=== PATIENT | female | born 1940 | race Caucasian/White ===

== ENCOUNTER 2025-04-23 10:23 | Emergency (ER) | payer MEDICARE ==
[~2025-04-23] VITALS: Ht 157.5 cm; Wt 67.5 kg
[~2025-04-23 10:23] MED LIST: CEPH250T PO; LEVO50TA8 PO; LISI10TA27 PO; MELO-100 PO; MEMA10TA22 PO; PROP120C2 PO; ROSU5TAB51 PO
[2025-04-23 10:27] VITALS: BP 169/66; PULSE 68; RESP 16; TEMP 97.9; O2SAT 97
--- NOTE | 2025-04-23 11:27 | Physician Documentation ---
History of Present Illness ~ Chief Complaint: Leg Pain Stated Complaint: LEG WOUND Time Seen by MD: 10:42 HPI 85-year-old female who presents to the emergency department for evaluation of right upper lateral lower leg injury secondary mechanical fall. Injury happened 4-5 days ago and subsequently has a an abrasion with early signs of infection. Tetanus witin 5 years: Yes Medication Reconciliation Allergies: Coded Allergies: No Known Allergies (Unverified , 04/23/25) Scheduled Cephalexin*Monohydrate* (Keflex*), 1 CAP PO Q6H Cephalexin*Monohydrate* (Keflex*), 1 CAP PO TID Levothyroxine Sodium (Levothyroxine Sodium), 1 TAB PO DAILY, (Reported) Lisinopril (Lisinopril), 1 TAB PO DAILY, (Reported) Meloxicam* (Meloxicam*), 1 TAB PO DAILY, (Reported) Memantine HCl (Memantine HCl), 1 TAB PO BID, (Reported) Propranolol Hcl (Propranolol Hcl), 1 CAP PO HS, (Reported) Rosuvastatin Calcium (Rosuvastatin Calcium), 1 TAB PO QAM, (Reported) Past Medical History Past Medical History: Dementia, Hypertension, Hypothyroidism Past Surgical History: appendectomy, cholecystectomy, hysterectomy Alcohol Use: Occasionally Drug Use: none Lives with: Spouse Review of Systems All Other Systems at this time: Reviewed and Negative Physical Exam Vital Signs: RN Vital Signs have been reviewed: Yes, Temperature: 97.9, Source: Temporal, Heart Rate: 68, Respiratory Rate: 16, BP: 169/66, Pulse Oximetry: 97, Weight: 67.500 Oxygen Flow Rate: 0 General Appearance: alert, WD/WN, mild distress Head: normal inspection EENT: PERRL/EOMI Neck: full range of motion Respiratory: no respiratory distress Chest: no accessory muscle use Legs: soft tissue tenderness Legs 1 cm upper lateral tib wound Ankles: normal inspection Feet: normal inspection Digit: normal inspection Nail: normal inspection Distal Function: no motor deficit Skin: other (1 cm right upper lateral lower leg wound, no subcutaneous air, no lymphangitis, mild surrounding erythema) Lymphatic: normal inspection Neurologic: oriented x4 Psychiatric: normal mood/affect Progress Results/Orders Results/Orders Orders - JAKUB MCDOWELL PAC Tib/Fib (04/23/25 ) Completed Orders - JAKUB MCDOWELL PAC Tib/Fib (04/23/25 ) Vital Signs 04/23/25 10:27 Temp 97.9 Pulse 68 Resp 16 B/P (MAP) 169/66 Pulse Ox 97 O2 Flow Rate 0 Medical Decision Making Additional information obtaine: N/A Findings Examination history warrants x-ray imaging to evaluate for foreign body, deep soft tissue injury and/or gas or bony pathology. X-rays reassuring for no foreign body, gas or bony pathology. Patient to be managed in outpatient with antibiotic and primary care follow up. Discharge safe stable condition. General Diff Dx:Considerations: Include: Abrasion, Contusion, Fracture, Ulcer Knee Diff Dx:Considerations: Include: Other Ankle Diff Dx:Considerations: Include: Other Foot Diff Dx:Considerations: Include: Other (Noncontributory) Toe Diff Dx:Considerations: Include: Other (Noncontributory) Departure Disposition: HOME / SELF CARE / HOMELESS Impression: Primary Impression: Wound of lower extremity Qualified Codes: S81.801A - Unspecified open wound, right lower leg, initial encounter Condition: Stable Discharge Instructions: Contusion, [id number], Wound Care, Adult Additional Instructions: Please begin Antibiotics as directed. Your X-rays are reassuring for no fracture. Please make follow up with the primary care doctor in 7-10 days. Thank you for visiting [facility]. Referrals: NO PRIMARY CARE PROVIDER (PCP) Prescriptions Cephalexin*Monohydrate* (Keflex*) 500 Mg Capsule 1 CAP PO TID, #21 CAP Prov: JAKUB MCDOWELL PAC 04/23/25 Education Educated: Patient Educated regarding: diagnosis, treatment, prognosis, need for follow up Signature Scribe Signature: . Attestation: . JAKUB MCDOWELL PAC Apr 23, 2025 11:27
[2025-04-23] MEDS ORDERED: CEPH-585 PO (11:50)
--- NOTE | 2025-04-23 11:57 | RADIOLOGY REPORT ---
X-ray right tibia and fibula Technique: AP and lateral views REASON FOR EXAM: Fall with infection INDICATION: Fall with infection FINDINGS: No fractures or dislocations. No erosions or periosteal reaction. Articular surfaces are smooth. IMPRESSION: 1. No bony pathology. Soft tissue swelling is present
== END 2025-04-23 12:06 | disposition home or self-care (01) ==
LOC: ER 10:24
DX: S81.801A Unspecified open wound, right lower leg, initial encounter (principal); E03.9 Hypothyroidism, unspecified; F03.90 Unspecified dementia, unspecified severity, without behavioral disturbance, psychotic disturbance, mood disturbance, and anxiety; I10 Essential (primary) hypertension; Z90.49 Acquired absence of other specified parts of digestive tract; Z90.710 Acquired absence of both cervix and uterus; W19.XXXA Unspecified fall, initial encounter; Y93.89 Activity, other specified; Y92.89 Other specified places as the place of occurrence of the external cause; Y99.8 Other external cause status
CPT/HCPCS: 73590; 99283

== ENCOUNTER 2025-04-29 10:31 | Emergency (ER) | payer MEDICARE ==
[~2025-04-29] VITALS: Ht 160 cm; Wt 75.0 kg
[~2025-04-29 10:31] MED LIST changes: +CEPH-585 PO
[2025-04-29 10:48] VITALS: TEMP 98.2
[2025-04-29 12:04] VITALS: RESP 16; O2SAT 94
--- NOTE | 2025-04-29 12:20 | Physician Documentation ---
History of Present Illness ~ Chief Complaint: Wound Stated Complaint: RT LEG PAIN Time Seen by MD: 11:20 Primary Medical Doctor: Nat Source: patient (1), family HPI Patient was brought in by her for recheck of a right lateral lower extremity wound. He tells me that two weeks ago she fell and hit her leg, after which it became swollen and she had a lesion or cut in the area of the blow. They did not seek medical care for 4-5 days and then came in for evaluation. At that time she was also having a bit of redness around the area that was going up her leg with swelling. She was seen here a week ago and sent home on Keflex, which she continues to take. X-rays were negative at that time. Patient was complaining of increased pain today and her brought her in for re-evaluation. There has been no fever, no vomiting, some occasional drainage. Tetanus within 5 years?: Yes Medication Reconciliation Allergies: Coded Allergies: No Known Allergies (Unverified , 04/23/25) Scheduled Cephalexin*Monohydrate* (Keflex*), 1 CAP PO Q6H Cephalexin*Monohydrate* (Keflex*), 1 CAP PO TID Levothyroxine Sodium (Levothyroxine Sodium), 1 TAB PO DAILY, (Reported) Lisinopril (Lisinopril), 1 TAB PO DAILY, (Reported) Meloxicam* (Meloxicam*), 1 TAB PO DAILY, (Reported) Memantine HCl (Memantine HCl), 1 TAB PO BID, (Reported) Propranolol Hcl (Propranolol Hcl), 1 CAP PO HS, (Reported) Rosuvastatin Calcium (Rosuvastatin Calcium), 1 TAB PO QAM, (Reported) Past Medical History Past Medical History: Dementia, High Cholesterol, Hypertension, Hypothyroidism Past Surgical History: appendectomy, cholecystectomy, hysterectomy Smoking Status: Never smoker Alcohol Use: None Drug Use: none Lives with: Spouse Review of Systems Unable to obtain complete ROS: dementia Physical Exam Vital Signs: Temperature: 98.2, Source: Oral, Heart Rate: 67, Respiratory Rate: 16, BP: 121/65, Pulse Oximetry: 94, Weight: 75.000 Oxygen Flow Rate: 0 Physical Exam General: Pt is awake, alert, oriented at her baseline in no acute distress and well appearing. Head: Normocephalic and atraumatic. Eyes: Conjunctiva normal. ENT: Mucous membranes moist. Neck: Supple. Chest: Clear to auscultation bilaterally, without rales, rhonchi, or wheezes. There is no accessory muscle use or retractions. Cardiac: Regular rate and rhythm without murmurs, gallops or rubs. Palpation of the chest wall is normal. Abd: Soft, nondistended, nontender, with normoactive bowel sounds. No guarding or rebound. Extremities: Mild edema to the right lower extremity, with a 1 cm wound over the lateral calf. This is somewhat deep, and full of slough, with surrounding eschar. There is faint erythema in the periwound area but no extension in the cephalad direction, no acute worsening cellulitis present. 1+ DP pulse with 2nd capillary refill to the toes. Skin: [place], warm and dry with no significant rash appreciated. Neuro: Cranial nerves II-XII grossly intact. The gait is normal. Progress Results/Orders Results/Orders Orders - JOHN MANN MD Vl Venous (04/29/25 12:19) Vital Signs 04/29/25 04/29/25 10:48 12:04 Temp 98.2 Pulse 67 67 Resp 16 16 B/P (MAP) 118/97 121/65 (83) Pulse Ox 97 94 O2 Flow Rate 0 0 Medical Decision Making Additional information obtaine: family Findings Differential Dx:Considerations: Unlikely: Abscess, Cellulitis, Dressing change, Healing wound, Other Additional Comment Patient presenting with now subacute wound contaminated with significant slough and surrounding eschar. Examination of the wound shows that the patient is in need of debridement, as she appears to be stuck in the inflammatory phase and having difficulty healing this wound. Vascular ultrasound was done to rule out deep vein thrombosis from the blow that she had two weeks ago; no DVT present. Patient to continue and finish her antibiotic prescription, and to elevate and use compression for her leg swelling. [facility]; the form was faxed down with the patient's information for them to call her. Patient's also to call if he does not hear from them. Patient to return to the emergency department if she has any increase in swelling or redness, any fever or other concerns. Departure Time of Disposition: 12:51 Disposition: 01 HOME / SELF CARE / HOMELESS Impression: Primary Impression: Chronic wound Condition: Stable Discharge Instructions: How to Change Your Wound Dressing Additional Instructions: Wash the wound and the leg daily with soap and water, pat dry, and treat the wound with Aquaphor ointment and a dry gauze. You do not want to let the wound dry out. She has been referred to the [facility], but you may call the hospital to talk to the wound care staff if you do not hear from them in the next week. She should continue to elevate to control swelling, and gentle compression stockings may also help. Finish the antibiotics as prescribed, return immediately to the emergency department if redness spreads, any fever, change in drainage or swelling, or any other concerns. Referrals: NO PRIMARY CARE PROVIDER (PCP) Education Educated: Patient, Family Educated regarding: diagnosis, treatment Signature Scribe Signature: Attestation: JOHN MANN MD Apr 29, 2025 12:20
--- NOTE | 2025-04-29 13:12 | VASCULAR REPORT ---
Right lower extremity venous duplex Clinical History: Pain and swelling Comparison: None Technique: Duplex Doppler evaluation of the deep venous systems of right lower extremity and contralateral left common femoral vein including color Doppler and spectral/pulsed waveform analysis was performed. Findings: RIGHT SIDE: The common femoral vein demonstrates appropriate compressibility and waveform variability. There is compressibility/patency of the great saphenous vein at the proximal thigh. The femoral vein demonstrates appropriate compressibility and waveform variability. The deep femoral vein demonstrates appropriate compressibility and waveform variability. The popliteal vein demonstrates appropriate compressibility and waveform variability. There is normal compressibility at the tibioperoneal trunk. LEFT SIDE: The common femoral vein demonstrates appropriate compressibility and waveform variability. Impression: No evidence of DVT in the right lower extremity Contralateral left common femoral vein is patent
[2025-04-29 13:31] VITALS: BP 163/74; PULSE 68
== END 2025-04-29 13:32 | disposition home or self-care (01) ==
LOC: ER 10:31
DX: G89.29 Other chronic pain (principal); S80.921A Unspecified superficial injury of right lower leg, initial encounter; E78.00 Pure hypercholesterolemia, unspecified; I10 Essential (primary) hypertension; E03.9 Hypothyroidism, unspecified; Z90.710 Acquired absence of both cervix and uterus; Z90.49 Acquired absence of other specified parts of digestive tract; Z79.899 Other long term (current) drug therapy; W18.39XA Other fall on same level, initial encounter; Y93.89 Activity, other specified; Y92.89 Other specified places as the place of occurrence of the external cause; Y99.8 Other external cause status
CPT/HCPCS: 93971; 99284